=== PATIENT | male | born 1945 | race Caucasian/White ===

== ENCOUNTER 2017-09-29 11:53 | Inpatient (IN) ==
[2017-09-22 13:13] LABS: Appearance,Urine CLEAR; Bilirubin,Urine NEG (NEG); Color,Urine YELLOW; Glucose,Urine (UA) 50 mg/dL (NEG); Leukocyte Esterase,Urine NEG /uL (NEG); Nitrate,Urine NEG (NEG); Protein,Urine NEG (NEG); Specific Gravity,Urine 1.021 (1.000-1.035); Urine Blood NEG mg/dL (<0.03); Urobilinogen,Urine NEG (NEG)
[2017-09-22 14:03] LABS: Basophils # (Auto) 0 K/mcL (0.0-0.3); Basophils % (Auto) 0.3 % (0.0-2.0); Eosinophils # (Auto) 0.4 K/mcL (0.0-0.7); Eosinophils % (Auto) 3.7 % (0.0-7.0); Granulocytes % (Auto) 55.9 % (38.0-78.0); Lymphocytes # (Auto) 3.3 K/mcL (1.5-4.8); Lymphocytes % (Auto) 32.5 % (15.5-49.0); Mean Cell Volume 88.4 fL (80.0-100.0); Mean Corpuscular HGB Conc 33.9 g/dL (31.0-36.0); Monocytes # (Auto) 0.8 K/mcL (0.1-0.9); Monocytes % (Auto) 7.6 % (1.0-12.0); Platelet Count 192 K/mcL (140-440); RBC 4.92 M/mcL (4.50-5.90); Red Cell Distribution Width 14.4 % (11.5-14.5)
[2017-09-22 14:12] LABS: Blood Urea Nitrogen 25 mg/dl (8-23)
[~2017-09-29 11:53] MED LIST: CELECOXIB 200 MG CAPSULE PO SCH; KETOROLAC 30 MG, ROPIVACAINE HCL/PF 49.5 ML, EPINEPHrine 0.5 MG, 0.9 % SODIUM CHLORIDE ... IJ ONE; PREGABALIN 75 MG CAPSULE PO SCH; ceFAZolin 1 GM VIAL IV SCH
[2017-09-29] MEDS ORDERED: IPRATROPIUM/ALBUTEROL 3 ML AMPUL.NEB NEB ONE (19:21)
[2017-09-29] MEDS ORDERED: DEXAMETHASONE 10 MG/ML VIAL IV ONE (21:35)
[2017-09-29] MEDS ORDERED: ROPIVACAINE HCL/PF 20 ML VIAL IJ ONE (21:35)
[2017-09-29] MEDS ORDERED: PROPOFOL 200 MG/20 ML VIAL IV ONE (21:35)
[2017-09-29] MEDS ORDERED: ONDANSETRON 4 MG/2 ML VIAL IV ONE (21:35)
[2017-09-29] MEDS ORDERED: TRANEXAMIC ACID 1,000 MG/10 ML VIAL IV ONE ×3 (21:35→23:45)
[2017-09-29] MEDS ORDERED: MIDAZOLAM 5 MG/5 ML VIAL IV ONE (21:35)
[2017-09-29] MEDS ORDERED: LIDOCAINE HCL/PF 100 MG/5 ML SYRINGE IV ONE (21:35)
[2017-09-29] MEDS ORDERED: KETAMINE 100 MG/ML ML IV ONE (21:35)
[2017-09-29] MEDS ORDERED: GENTAMICIN SULFATE 800 MG/20 ML VIAL IR ONE (21:58)
[2017-09-29] MEDS ORDERED: IPRATROPIUM/ALBUTEROL 3 ML AMPUL.NEB NEB PRN (22:44)
[2017-09-29] MEDS ORDERED: FLUMAZENIL 0.1 MG/ML ML IV PRN (22:44)
[2017-09-29] MEDS ORDERED: NALOXONE HCL 0.4 MG/ML VIAL IV PRN (22:44)
[2017-09-29] MEDS ORDERED: ACETAMINOPHEN 1,000 MG/100 ML BOTTLE IV ONE (22:44)
[2017-09-29] MEDS ORDERED: OPIUM/BELLADONNA ALKALOIDS 60 MG SUPP.RECT PR PRN (22:44)
[2017-09-29] MEDS ORDERED: ATROPINE SULFATE 0.4 MG/ML VIAL IV PRN (22:44)
[2017-09-29] MEDS ORDERED: BENZOCAINE/MENTHOL 1 LOZENGE PO PRN ×2 (22:44→23:14)
[2017-09-29] MEDS ORDERED: ONDANSETRON 4 MG/2 ML VIAL IV PRN ×2 (22:44→23:14)
[2017-09-29] MEDS ORDERED: ePHEDrine 50 MG/ML AMPUL IV PRN (22:44)
[2017-09-29] MEDS ORDERED: METOPROLOL TARTRATE 5 MG/5 ML VIAL IV PRN (22:44)
[2017-09-29] MEDS ORDERED: PROMETHAZINE 25 MG/ML VIAL IV PRN (22:44)
[2017-09-29] MEDS ORDERED: LACTATED RINGERS 1,000 ML IV SCH (22:45)
--- NOTE | 2017-09-29 23:13 | Brief Operative Note ---
Date of procedure: 09/29/17 Pre-op diagnosis: left knee oa Post-op diagnosis: same Procedure: left total knee arthroplasty Grafts/Implants: Yes Anesthesia: spinal Complications: none Surgeon: Kodak Russo Integrity Consultant: Jennifer Garcia Estimated blood loss (cc): 150 Tourniquet Time (Minutes): 62 Specimens Removed/Pathology: none sent Condition: stable Disposition: PACU
[2017-09-29] MEDS ORDERED: BISACODYL 10 MG SUPP.RECT PR PRN (23:14)
[2017-09-29] MEDS ORDERED: ACETAMINOPHEN 325 MG TABLET PO PRN (23:14)
[2017-09-29] MEDS ORDERED: METHOCARBAMOL 750 MG TABLET PO PRN (23:14)
[2017-09-29] MEDS ORDERED: ONDANSETRON ODT 4 MG TABLET SL PRN (23:14)
[2017-09-29] MEDS ORDERED: FLEETS ADULT ENEMA PR PRN (23:14)
[2017-09-29] MEDS ORDERED: MAGNESIUM HYDROXIDE 30 ML ORAL.SUSP PO PRN (23:14)
[2017-09-29] MEDS ORDERED: POLYETHYLENE GLYCOL 3350 17 GM PACKET PO PRN (23:14)
[2017-09-29] MEDS ORDERED: ACETAMINOPHEN W/CODEINE #3 1 TABLET PO PRN (23:14)
[2017-09-30] MEDS: 0.9 % SODIUM CHLORIDE 1,000 ML IV SCH ×2 (00:20→08:24)
[2017-09-30] MEDS: KETOROLAC 30 MG/ML VIAL IV SCH ×3 (00:37→12:24)
[2017-09-30] MEDS ORDERED: KETOROLAC 15 MG/ML VIAL ONE (00:39)
[2017-09-30] MEDS: ceFAZolin 1 GM VIAL IV SCH ×2 (01:15→06:12)
[2017-09-30] MEDS ORDERED: ACETAMINOPHEN 325 MG TABLET PO ONE (02:44)
[2017-09-30] MEDS ORDERED: METHOCARBAMOL 750 MG TABLET PO ONE (02:45)
[2017-09-30] MEDS ORDERED: 0.9 % SODIUM CHLORIDE 10 ML SYRINGE IV SCH (06:00)
[2017-09-30] MEDS ORDERED: KETOROLAC 30 MG/ML VIAL ONE (06:08)
[2017-09-30] MEDS ORDERED: ceFAZolin 1 GM VIAL ONE (06:08)
--- NOTE | 2017-09-30 06:32 | XRay Report ---
CLINICAL INFORMATION: Post-Op Total Knee COMPARISON: None. FINDINGS: Total knee prostheses is anatomically aligned. Soft tissue swelling noted. No osseous abnormality. IMPRESSION: Negative Interpreted and Authenticated by: Kodak Renee 09/30/17
--- NOTE | 2017-09-30 07:27 | Discharge Summary ---
Providers - Providers Patient information: Note initiated : 09/30/17 at 7:25 am Service Date, if different from initiated Date: [] Patient: Dominic Joseph 72 y/o M admitted on 09/29/17 for Left Total Knee Arthroplasty. Chief Complaint: [POD #1 s/p left TKA Patient is doing well. Denies numbness, tingling, calf pain, CP or SOB. Ambulating okay. No questions or concerns] Discharge date: 09/30/17 Hospitalization Hospital course: Patient was brought into the OR on 09/29/17 for left TKA. Procedure went well without event. Patient tolerated well. Admitted overnight for pain control and observation. Will be discharged to home today and follow up in office in 2 weeks. Discharge diagnosis: knee osteoarthritis Exam - Exam Incision healing: Yes Incision draining: No Incision red: No Incision swollen: No Incision inflamed: No Clean and dry: Yes Weight bearing status: as tolerated Range of motion: full AROM b/l ankles/feet. left knee 0/90 deg Ortho Discharge - TKA - Patient Instructions Diet: Regular Diet Activity: activity as tolerated, ambulate with assistive device Total Knee Protocol: For Total Knee: Start ROM RENA with stationary bike or rocking chair. Work on gaining full extension of knee. Posterior dislocation precautions provided. Hip abductor strengthening and gait training instructions provided. Apply Cryocuff as instructed. Dressing Care: May shower in 2 days, Aquacel Ag - leave on for 5 days - Follow Up Plan Follow Up Appointments: Kodak Russo MD [Physician] - Disposition: Home, Self-Care Prognosis: Fair Rehab Potential: Fair Overall status at discharge: patient is progressing back to baseline - Orders For Discharge Prescriptions: Acetaminophen [Tylenol] 650 mg PO Q6HP PRN #60 tab PRN Reason: Pain/Fever > 101 Aspirin [Ecotrin] 325 mg PO BID #60 tab.ec Additional Discharge Orders: Physical Therapy at Discharge - TKA Location: Determined By Patient Walker Location: Determined By Patient Pending Studies Resuscitation Status Full Code Diet Regular Diet Start ThuSep 29 Breakfast Acetaminophen (Tylenol) 650 mg PO Q6HP PRN PRN Reason: PAIN/FEVER > 101 Last Admin: 09/30/17 02:39 Dose: 650 mg Sodium Chloride (Sodium Chloride 0.9%) 1,000 mls @ 125 mls/hr IV .Q8H [facility] Last Admin: 09/30/17 00:20 Dose: 125 mls/hr Ketorolac Tromethamine (Toradol) 30 mg IV Q6 [facility] Stop: 10/01/17 18:01 Last Admin: 09/30/17 06:11 Dose: 30 mg Admin: 09/30/17 00:37 Dose: 30 mg Methocarbamol (Robaxin) 750 mg PO Q6HP PRN PRN Reason: Muscle Spasm Last Admin: 09/30/17 02:39 Dose: 750 mg Sodium Chloride (Saline Flush) 10 ml IV Q8 [facility] Last Admin: 09/30/17 06:11 Dose: 10 ml Shift Summary 09/30/17 03:47 Shift Summary by Augustina Barragan Addendum entered by Augustina Barragan R.N. 09/30/17 04:09: VSS on 2L via NC. Original Note: A&O. Hx of HTN, SOB, asthma, arthritis, frequent urination. Returned to floor at about 0010. EBL 150ml. Had femoral and spinal block. Dressing to L knee CDI. 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 Gave 650mg tylenol and 1 tab robaxin for 7/10 pain. Up w/ 1 assist & FWW. Ambulated to BR to void. Voided 50ml w/ PVR 643ml. Straight cath' ed @ 0330 for 600ml. NS infusing @ 125. Venous foot pumps on. Still c/o some numbness to both feet. Pleasant and cooperative with all cares. Initialized on 09/30/17 03:47 - END OF NOTE Exam Vital signs: Temp Pulse Resp BP Pulse Ox 96.9 F L 91 H 16 159/77 97 09/30/17 03:01 09/30/17 07:16 09/30/17 03:01 09/30/17 03:01 09/30/17 07:16 Constitutional: well developed, well nourished, no acute distress Respiratory: no intercostal retractions or use of accessory muscles Cardiovascular: other (DP/PT pulses 2+. Cap refill < 3 secs) Neurologic: sensation intact to touch, other (b/l LE NVI. Motor and sensory grossly intact) Psychiatric: oriented to person, place and time
[2017-09-30] MEDS ORDERED: METHOCARBAMOL 750 MG TABLET PO PRN (07:34)
--- NOTE | 2017-09-30 07:36 | Operative Note ---
DATE OF OPERATION: 09/29/2017 PREOPERATIVE DIAGNOSIS: Degenerative joint disease, left knee. POSTOPERATIVE DIAGNOSIS: Degenerative joint disease, left knee. PROCEDURE: Left total knee arthroplasty. SURGEON: Emiliano Russo M.D. [employer] P[employer]TER SURGEON: Jennifer Garcia PA-C ANESTHESIA: Spinal with LMA assist. ESTIMATED BLOOD LOSS: 150 mL COMPLICATIONS: None noted. SPECIMENS REMOVED: None. DRAINS: None. TOURNIQUET TIME: 62 minutes at 300 mmHg. IMPLANTS: DePuy Attune tibial insert fixed bearing posterior stabilized size 6, 5 mm AOX, DePuy Attune patella medialized dome 38 mm cemented AOX, DePuy Attune femoral posterior stabilized size 6 left cemented, DePuy Attune tibial based fixed bearing size 6 cemented, DePuy CMW2 bone cement 20 grams x4. INDICATIONS: The patient has had a long-standing history of worsening pain in the knee that has failed conservative treatment. Radiographs have confirmed advanced degenerative joint disease. After a long discussion about treatment options, the patient elected to proceed with a knee arthroplasty. The risks and benefits were discussed with the patient in detail including, but not limited to, the risks of anesthesia, problems with the heart or lungs related to anesthesia, infection, compromise or injury to the nerves and blood vessels, deep venous thrombosis, pulmonary embolism, pneumonia, continued pain after surgery, worsening pain or symptoms after surgery, swelling, loss of motion, instability, leg length discrepancy, and need for repeat surgery. DESCRIPTION OF PROCEDURE: The patient was seen in the pre-anesthesia waiting room where all questions were answered and the correct side and site were identified and marked. The patient was transferred to the operating room and administered the anesthetic and given pre-operative antibiotics. A time-out was then called. The extremity was prepped and draped, exsanguinated, and the tourniquet was inflated to 300 mmHg. A midline skin incision was then made with a standard medial parapatellar arthrotomy. Debridement of the menisci, ACL, and PCL was performed followed by balancing releases in the medial lateral plane. We then established intramedullary access to both the femur and tibia in a standard fashion. The femoral guide bartolo was initially placed with the distal femoral guide, pinned into place, and the distal femoral cut was performed and checked with a flat plate. We then turned our attention to the tibia. The intramedullary guide was placed with the proximal tibial cutting block. The block was appropriately positioned off the affected side, varus and valgus was checked with the extra-medullary guide, and the block was pinned into place. The proximal tibial cut was performed and the tibia was prepared for the tibial implant with appropriate rotation. The tibia, femur, and posterior compartment were debrided of osteophytes, loose bodies, and meniscal fragments We then used the gap balancing technique to balance extension with the first two cuts and good balancing was obtained with a 10 millimeter gap block. We turned our attention back to the femur and used the referencing block and implant to size appropriately. Using the gap balancing technique for the flexion space we set our rotation of the femur off the tibial cut. Anesthesia gave the patient 1 gram of Tranexamic Acid via an intravenous route. We placed the 4 in 1 cutting block and made anterior, posterior, and chamfer cuts. Box plasty cuts were then made in a standard fashion for the posterior stabilized prosthesis. We then completed osteophyte release and posterior capsule release from the posterior compartment. Trials were placed and we chose the polyethylene insert thickness that provided the best stability in all planes. With the trials in place, we did a measured resection for a resurfacing patella. We sized the patella and placed the patella trial and performed a lateral facetectomy with the saw and rongeur. Good tracking was obtained. We removed all trials, irrigated and dried all cut surfaces. We cemented the components into place including tibia, femur and patella. We placed a trial liner and held the knee in full extension with the patella compressed while the cement cured. We then removed all excess cement and placed the final polyethylene tibiofemoral component. Irrigation with 3 liters of antibiotic saline was then performed using jet-lavage. We let the tourniquet down and coagulated bleeding vessels. We injected a 100 cubic centimeter volume including Ropivacaine 49.25 cubic centimeters at 5 milligrams per cubic centimeter, Ketorolac 30 milligrams, and Epinephrine 0.5 milligrams into 100 cubic centimeters volume of normal saline. We closed the retinaculum with #2 Stratafix. We closed the subcutaneous tissue and skin in layers out to patric in the skin. A sterile pressure dressing was applied. All needle and sponge counts were correct. The patient was transferred to the recovery room in stable condition. SEGUN:capri Job ID: [id number] Doc ID: [id number] Emiliano Russo MD
[2017-09-30] MEDS ORDERED: ALBUTEROL SULFATE 1 PUFF INHALER IH PRN (09:00)
[2017-09-30] MEDS ORDERED: ALBUTEROL SULFATE 1 PUFF INHALER IH SCH (09:00)
[2017-09-30] MEDS ORDERED: FUROSEMIDE 40 MG TABLET PO SCH (09:00)
[2017-09-30] MEDS ORDERED: DOCUSATE SODIUM 100 MG CAPSULE PO SCH (09:00)
[2017-09-30] MEDS ORDERED: LOSARTAN 50 MG TABLET PO SCH (09:00)
[2017-09-30] MEDS ORDERED: Budesonide/Formoterol Fumarate [Symbicort] 160-4.5 mcg Inhaler INH SCH (09:00)
[2017-09-30] MEDS ORDERED: MONTELUKAST 10 MG TABLET PO SCH (09:00)
[2017-09-30] MEDS ORDERED: ASPIRIN 325 MG ENTERIC COATED TABLET PO SCH (09:00)
[2017-09-30] MEDS ORDERED: ceFAZolin 1 GM VIAL IV SCH (14:00)
[2017-09-30] MEDS ORDERED: SENNOSIDES 1 TABLET PO SCH (21:00)
== END 2017-09-30 14:15 | disposition home or self-care (01) | DRG 470 ==
LOC: MEDSUR 11:53
PROVIDERS: ADMIT Orthopaedic Surgery Sports Medicine; ATTEND Orthopaedic Surgery Sports Medicine

== ENCOUNTER 2018-02-19 10:00 | Inpatient (IN) ==
[2018-02-19 14:40] LABS: Appearance,Urine CLEAR; Bilirubin,Urine NEG (NEG); Color,Urine COLORLESS; Glucose,Urine (UA) NEGATIVE (NEG); Leukocyte Esterase,Urine NEG /uL (NEG); Protein,Urine NEG (NEG); Specific Gravity,Urine 1.006 (1.000-1.035); Urine Blood NEG mg/dL (<0.03); Urobilinogen,Urine NEG (NEG)
[2018-02-19 15:06] LABS: Basophils # (Auto) 0 K/mcL (0.0-0.3); Basophils % (Auto) 0.2 % (0.0-2.0); Eosinophils # (Auto) 0.3 K/mcL (0.0-0.7); Eosinophils % (Auto) 2.4 % (0.0-7.0); Granulocytes % (Auto) 55.3 % (38.0-78.0); Lymphocytes # (Auto) 3.9 K/mcL (1.5-4.8); Lymphocytes % (Auto) 34.6 % (15.5-49.0); Mean Cell Volume 86.9 fL (80.0-100.0); Mean Corpuscular HGB Conc 33.3 g/dL (31.0-36.0); Mean Corpuscular Hemoglobin 28.9 pg (26.0-34.0); Monocytes # (Auto) 0.8 K/mcL (0.1-0.9); Monocytes % (Auto) 7.5 % (1.0-12.0); Platelet Count 219 K/mcL (140-440); RBC 5.31 M/mcL (4.50-5.90); Red Cell Distribution Width 14.4 % (11.5-14.5)
[2018-02-19 15:13] LABS: Blood Urea Nitrogen 16 mg/dl (8-23)
[2018-02-23] MEDS ORDERED: IPRATROPIUM/ALBUTEROL 3 ML AMPUL.NEB NEB PRN ×2 (00:01→13:10)
[2018-02-23] MEDS ORDERED: SCOPOLAMINE 1 PATCH PATCH TOPICAL PRN (00:01)
[2018-02-23] MEDS ORDERED: oxyCODONE 10 MG TAB.ER.12H PO SCH (07:00)
[2018-02-23] MEDS ORDERED: PREGABALIN 75 MG CAPSULE PO SCH (07:00)
[2018-02-23] MEDS ORDERED: CELECOXIB 200 MG CAPSULE PO SCH (07:00)
[2018-02-23] MEDS ORDERED: ceFAZolin 1 GM VIAL IV SCH (07:00)
[2018-02-23] MEDS ORDERED: KETOROLAC 30 MG, ROPIVACAINE HCL/PF 49.5 ML, EPINEPHrine 0.5 MG, 0.9 % SODIUM CHLORIDE ... IV SCH (07:00)
[2018-02-23] MEDS ORDERED: TRANEXAMIC ACID 1,000 MG/10 ML VIAL IV ONE ×2 (11:55→13:34)
[2018-02-23] MEDS ORDERED: LIDOCAINE HCL/PF 100 MG/5 ML SYRINGE IV ONE (11:55)
[2018-02-23] MEDS ORDERED: PROPOFOL 200 MG/20 ML VIAL IV ONE (11:55)
[2018-02-23] MEDS ORDERED: ONDANSETRON 4 MG/2 ML VIAL IV ONE (11:55)
[2018-02-23] MEDS ORDERED: MIDAZOLAM 5 MG/5 ML VIAL IV ONE (11:55)
[2018-02-23] MEDS ORDERED: ePHEDrine 50 MG/ML AMPUL IV ONE (11:55)
[2018-02-23] MEDS ORDERED: DEXAMETHASONE 10 MG/ML VIAL IV ONE (11:55)
[2018-02-23] MEDS ORDERED: ROPIVACAINE HCL/PF 20 ML VIAL IJ ONE (12:00)
[2018-02-23] MEDS ORDERED: GENTAMICIN SULFATE 800 MG/20 ML VIAL IR ONE (13:09)
[2018-02-23] MEDS ORDERED: ONDANSETRON 4 MG/2 ML VIAL IV PRN ×2 (13:10→13:34)
[2018-02-23] MEDS ORDERED: BENZOCAINE/MENTHOL 1 LOZENGE PO PRN ×2 (13:10→13:34)
[2018-02-23] MEDS ORDERED: PROMETHAZINE 25 MG/ML VIAL IV PRN (13:10)
[2018-02-23] MEDS ORDERED: MEPERIDINE 25 MG/ML SYRINGE IV PRN (13:10)
[2018-02-23] MEDS ORDERED: FLUMAZENIL 0.1 MG/ML ML IV PRN (13:10)
[2018-02-23] MEDS ORDERED: ACETAMINOPHEN 1,000 MG/100 ML BOTTLE IV ONE (13:10)
[2018-02-23] MEDS ORDERED: LACTATED RINGERS 250 ML IV PRN (13:10)
[2018-02-23] MEDS ORDERED: NALOXONE HCL 0.4 MG/ML VIAL IV PRN (13:10)
[2018-02-23] MEDS ORDERED: diphenhydrAMINE 50 MG/ML VIAL IV PRN (13:10)
[2018-02-23] MEDS ORDERED: fentaNYL 100 MCG/2 ML VIAL IV PRN (13:10)
[2018-02-23] MEDS ORDERED: LACTATED RINGERS 1,000 ML IV SCH (13:15)
[2018-02-23] MEDS ORDERED: ALBUTEROL SULFATE 1 PUFF INHALER IH PRN (13:33)
[2018-02-23] MEDS ORDERED: FLEETS ADULT ENEMA PR PRN (13:34)
[2018-02-23] MEDS ORDERED: MAGNESIUM HYDROXIDE 30 ML ORAL.SUSP PO PRN (13:34)
[2018-02-23] MEDS ORDERED: POLYETHYLENE GLYCOL 3350 17 GM PACKET PO PRN (13:34)
[2018-02-23] MEDS ORDERED: BISACODYL 10 MG SUPP.RECT PR PRN (13:34)
[2018-02-23] MEDS ORDERED: METHOCARBAMOL 750 MG TABLET PO PRN (13:34)
[2018-02-23] MEDS ORDERED: ACETAMINOPHEN 325 MG TABLET PO PRN (13:34)
[2018-02-23] MEDS ORDERED: ONDANSETRON ODT 4 MG TABLET SL PRN (13:34)
--- NOTE | 2018-02-23 13:34 | Brief Operative Note ---
Date of procedure: 02/23/18 Pre-op diagnosis: right knee oa Post-op diagnosis: same Procedure: right total knee arthroplasty Grafts/Implants: Yes Anesthesia: spinal Complications: none Surgeon: Kodak Russo Dope Edger: Jennifer Garcia Estimated blood loss (cc): 100 Tourniquet Time (Minutes): 62 Specimens Removed/Pathology: none sent Condition: stable Disposition: PACU
--- NOTE | 2018-02-23 14:01 | Operative Note ---
DATE OF OPERATION: 02/23/2018 PREOPERATIVE DIAGNOSIS: Degenerative joint disease, right knee. POSTOPERATIVE DIAGNOSIS: Degenerative joint disease, right knee. PROCEDURE: Right total knee arthroplasty. SURGEON: Emiliano Russo M.D. SKIN CARVER SURGEON: Jennifer Garcia PA-C ANESTHESIA: Spinal with LMA assist. ESTIMATED BLOOD LOSS: 100 mL COMPLICATIONS: None noted. SPECIMENS REMOVED: None. DRAINS: None. TOURNIQUET TIME: 62 minutes at 300 mmHg. IMPLANTS: DePuy CMW2 bone cement 20 grams x4, DePuy Attune femoral posterior stabilized size 7 right cemented, DePuy Attune tibial insert fixed bearing posterior stabilized size 7, 8 mm AOX, DePuy Attune tibial based fixed bearing size 6 cemented, DePuy Attune patella medialized dome 38 mm cemented AOX. INDICATIONS: The patient has had a long-standing history of worsening pain in the knee that has failed conservative treatment. Radiographs have confirmed advanced degenerative joint disease. After a long discussion about treatment options, the patient elected to proceed with a knee arthroplasty. The risks and benefits were discussed with the patient in detail including, but not limited to, the risks of anesthesia, problems with the heart or lungs related to anesthesia, infection, compromise or injury to the nerves and blood vessels, deep venous thrombosis, pulmonary embolism, pneumonia, continued pain after surgery, worsening pain or symptoms after surgery, swelling, loss of motion, instability, leg length discrepancy, and need for repeat surgery. DESCRIPTION OF PROCEDURE: The patient was seen in the pre-anesthesia waiting room where all questions were answered and the correct side and site were identified and marked. The patient was transferred to the operating room and administered the anesthetic and given pre-operative antibiotics. A time-out was then called. The extremity was prepped and draped, exsanguinated, and the tourniquet was inflated to 300 mmHg. A midline skin incision was then made with a standard medial parapatellar arthrotomy. Debridement of the menisci, ACL, and PCL was performed followed by balancing releases in the medial lateral plane. We then established intramedullary access to both the femur and tibia in a standard fashion. The femoral guide bartolo was initially placed with the distal femoral guide, pinned into place, and the distal femoral cut was performed and checked with a flat plate. We then turned our attention to the tibia. The intramedullary guide was placed with the proximal tibial cutting block. The block was appropriately positioned off the affected side, varus and valgus was checked with the extra-medullary guide, and the block was pinned into place. The proximal tibial cut was performed and the tibia was prepared for the tibial implant with appropriate rotation. The tibia, femur, and posterior compartment were debrided of osteophytes, loose bodies, and meniscal fragments We then used the gap balancing technique to balance extension with the first two cuts and good balancing was obtained with a 10 millimeter gap block. We turned our attention back to the femur and used the referencing block and implant to size appropriately. Using the gap balancing technique for the flexion space we set our rotation of the femur off the tibial cut. Anesthesia gave the patient 1 gram of Tranexamic Acid via an intravenous route. We placed the 4 in 1 cutting block and made anterior, posterior, and chamfer cuts. Box plasty cuts were then made in a standard fashion for the posterior stabilized prosthesis. We then completed osteophyte release and posterior capsule release from the posterior compartment. Trials were placed and we chose the polyethylene insert thickness that provided the best stability in all planes. With the trials in place, we did a measured resection for a resurfacing patella. We sized the patella and placed the patella trial and performed a lateral facetectomy with the saw and rongeur. Good tracking was obtained. We removed all trials, irrigated and dried all cut surfaces. We cemented the components into place including tibia, femur and patella. We placed a trial liner and held the knee in full extension with the patella compressed while the cement cured. We then removed all excess cement and placed the final polyethylene tibiofemoral component. Irrigation with 3 liters of antibiotic saline was then performed using jet-lavage. We let the tourniquet down and coagulated bleeding vessels. We injected a 100 cubic centimeter volume including Ropivacaine 49.25 cubic centimeters at 5 milligrams per cubic centimeter, Ketorolac 30 milligrams, and Epinephrine 0.5 milligrams into 100 cubic centimeters volume of normal saline. We closed the retinaculum with #2 Stratafix and 0 Vicryl. We closed the subcutaneous tissue and skin in layers out to Dermabond on the skin. A sterile pressure dressing was applied. All needle and sponge counts were correct. The patient was transferred to the recovery room in stable condition. SEGUN:capri Job ID: [id number] Doc ID: [id number] Emiliano Russo MD
--- NOTE | 2018-02-23 14:31 | XRay Report ---
CLINICAL INFORMATION: Right knee surgery TECHNIQUE: AP and lateral right knee COMPARISON: None. FINDINGS: Status post right total knee arthroplasty. Femoral and tibial components are in anatomic positions. There is postsurgical soft tissue and intra-articular gas IMPRESSION: Status post right total knee arthroplasty. Interpreted and Authenticated by: Kodak Loyola 02/23/18
[2018-02-23] MEDS: 0.9 % SODIUM CHLORIDE 1,000 ML IV SCH ×2 (14:35→22:38)
[2018-02-23] MEDS: 0.9 % SODIUM CHLORIDE 10 ML SYRINGE IV SCH ×2 (14:37→20:29)
[2018-02-23] MEDS: HYDROcodone/APAP 10/325MG TABLET PO PRN (17:35)
[2018-02-23] MEDS: KETOROLAC 15 MG/ML VIAL IV SCH ×2 (17:35→23:30)
[2018-02-23] MEDS: ceFAZolin 1 GM VIAL IV SCH (19:45)
[2018-02-23] MEDS: ASPIRIN 325 MG ENTERIC COATED TABLET PO SCH (20:28)
[2018-02-23] MEDS: DOCUSATE SODIUM 100 MG CAPSULE PO SCH (20:28)
[2018-02-23] MEDS: LOSARTAN 50 MG TABLET PO SCH (20:28)
[2018-02-23] MEDS ORDERED: SENNOSIDES 1 TABLET PO SCH (21:00)
[2018-02-23] MEDS ORDERED: MONTELUKAST 10 MG TABLET PO SCH (21:00)
[2018-02-24] MEDS: HYDROcodone/APAP 10/325MG TABLET PO PRN ×3 (03:13→11:28)
[2018-02-24] MEDS: ceFAZolin 1 GM VIAL IV SCH (03:13)
[2018-02-24] MEDS: 0.9 % SODIUM CHLORIDE 1,000 ML IV SCH (04:58)
[2018-02-24] MEDS: KETOROLAC 15 MG/ML VIAL IV SCH ×2 (05:20→11:50)
[2018-02-24] MEDS: 0.9 % SODIUM CHLORIDE 10 ML SYRINGE IV SCH (05:20)
[2018-02-24] MEDS: ASPIRIN 325 MG ENTERIC COATED TABLET PO SCH (07:30)
[2018-02-24] MEDS: LOSARTAN 50 MG TABLET PO SCH (07:30)
[2018-02-24] MEDS: DOCUSATE SODIUM 100 MG CAPSULE PO SCH (07:30)
--- NOTE | 2018-02-24 07:41 | Orthopedic Progress Note ---
Subjective Patient information: Note initiated : 02/24/18 at 7:40 am Service Date, if different from initiated Date: [] Patient: Dominic Joseph 72 y/o M admitted on 02/23/18 for Right Total Knee Arthroplasty. Chief Complaint: [] Interval history: doing well. pain under control this am Objective Vital signs: Vital Signs Temp Pulse Pulse Resp BP BP Pulse Ox 02/24/18 07:29 132/64 02/24/18 03:22 97.7 F 77 16 131/67 93 02/23/18 23:36 97.3 F 85 16 134/69 94 02/23/18 21:33 94 02/23/18 21:32 94 02/23/18 20:00 97.8 F 81 16 135/86 92 02/23/18 15:35 70 155/69 93 02/23/18 15:19 66 147/69 94 02/23/18 15:03 67 147/81 95 02/23/18 14:48 66 163/81 97 02/23/18 14:34 70 152/71 94 02/23/18 14:26 98.1 F 65 14 146/62 96 02/23/18 14:21 67 13 150/76 95 02/23/18 14:16 72 16 153/73 93 02/23/18 14:11 77 14 157/62 93 02/23/18 14:06 79 17 149/61 94 02/23/18 14:01 78 20 150/69 94 02/23/18 13:56 97.4 F 76 18 141/65 96 02/23/18 10:04 97.6 F 69 20 156/63 93 02/23/18 08:13 20 Intake and Output 02/23/18 02/24/18 02/24/18 21:59 05:59 13:59 Intake Total 1040 / 1040 1300 / 1300 Output Total 525 / 525 400 / 400 Balance 515 / 515 900 / 900 Intake: IV 1000 / 1000 Sodium Chloride 0.9% 1,000 ml @ 1000 / 1000 125 mls/hr IV .Q8H [facility] Rx#: [id number] Oral 1040 / 1040 300 / 300 Output: Void Amount 525 / 525 400 / 400 Other: Meal Dinner Percent of Meal Consumed 100% Weight 265 lb 8 oz Intake & Output: Intake & Output 02/23/18 02/24/1818 21:59 05:59 13:59 Intake Total 1040 / 1040 1300 / 1300 Output Total 525 / 525 400 / 400 Balance 515 / 515 900 / 900 Weight 265 lb 8 oz Intake: IV 1000 / 1000 Sodium Chloride 0.9% 1,000 ml @ 1000 / 1000 125 mls/hr IV .Q8H [facility] Rx#: [id number] Oral 1040 / 1040 300 / 300 Output: Void Amount 525 / 525 400 / 400 Other: Meal Dinner Percent of Meal Consumed 100% Incision: Yes healing Incision clean and dry: Yes Dressing: Yes clean, Yes dry, Yes intact Weight bearing status: full Neurological exam IM: Yes alert, Yes oriented X3, Yes motor sensory intact, Yes neurovascular intact Extremities exam IM: No calf tenderness, Yes normal inspection, Yes Foot pink and warm, Yes neurovascular intact - Labs CBC & BMP: 02/24/18 04:15 02/19/18 12:15 Labs: Orthopedic Labs 02/19/18 12:15 PT 12.5 INR 0.9 02/24/18 02/19/18 04:15 12:15 Hgb 12.6 L 15.3 Hct 37.9 L 46.1 Assessment and Plan (1) Knee osteoarthritis pod 1 s/p tka pain control dvt prophylaxis wbat pt dc planning Status: Acute
--- NOTE | 2018-02-24 07:43 | Discharge Summary ---
Ortho Discharge - TKA - Patient Instructions Diet: Regular Diet Activity: activity as tolerated, ambulate with assistive device, weight bearing as tolerated Total Knee Protocol: For Total Knee: Start ROM RENA with stationary bike or rocking chair. Work on gaining full extension of knee. Posterior dislocation precautions provided. Hip abductor strengthening and gait training instructions provided. Apply Cryocuff as instructed. Dressing Care: May shower in 2 days - Problem Maintenance (1) Knee osteoarthritis Status: Acute - Follow Up Plan Follow Up Appointments: Kdoak Russo MD [Physician] - 03/10/18 9:00 am Disposition: Home, Self-Care Prognosis: Good Rehab Potential: Good I certify that the patient requires SNF services: No Overall status at discharge: patient is progressing back to baseline
[2018-02-24] MEDS ORDERED: FERROUS SULFATE 325 MG TABLET PO SCH (08:00)
[2018-02-24] MEDS ORDERED: FUROSEMIDE 40 MG TABLET PO SCH (09:00)
[2018-02-24] MEDS ORDERED: Fluticasone Furoate [Arnuity Ellipta] Inhaler INH SCH (09:00)
[2018-02-24] MEDS ORDERED: TRELEGY INH SCH (09:00)
== END 2018-02-24 12:00 | disposition home or self-care (01) | DRG 470 ==
LOC: MEDSUR 02-23 08:13
PROVIDERS: ADMIT Orthopaedic Surgery Sports Medicine; ATTEND Orthopaedic Surgery Sports Medicine

== ENCOUNTER 2020-05-21 05:12 | Observation (INO) ==
[2020-05-21] MEDS ORDERED: IOPAMIDOL 100 ML BOTTLE IV ONE (05:13)
--- NOTE | 2020-05-21 05:29 | Emergency Department Note ---
HPI General Chief complaint: Weakness Stated complaint: weakness resolved Time Seen by Provider: 05/21/20 05:16 Source: patient Mode of arrival: EMS Limitations: no limitations History of Present Illness HPI Narrative: Narrative: 74-year-old patient presenting to the emergency department chief complaint of stroke symptoms. Patient's primary syndrome includes left-sided hemiparesis by history. Patient's primary syndrome does not include expressive aphasia, gait instability/posterior circulation symptoms, visual disturbance. Patient with sudden onset. Patient with past medical history does include diabetes. Patients time course was less than 1 hour prior to arrival. Pt is not currently on blood thinners. Patient with complete resolution of symptoms over a 20- minute period of time. Related Data Home Medications Medication Instructions Recorded Confirmed albuterol sulfate [Proventil HFA] 1 puff IH Q4HP PRN 09/22/17 05/21/20 furosemide 40 mg PO DAILY 09/22/17 05/21/20 losartan [Cozaar] 50 mg PO QDAY 09/22/17 05/21/20 montelukast [Singulair] 10 mg PO HS 09/22/17 05/21/20 cholecalciferol (vitamin D3) 4,000 unit PO DAILY 02/19/18 05/21/20 [Vitamin D3] Trelegy 1 puff INH DAILY 02/23/18 05/21/20 metformin 500 mg PO BID 05/21/20 05/21/20 Previous Rx's Medication Instructions Recorded aspirin [Aspir-81] 81 mg PO QDAY #30 tab 05/22/20 atorvastatin 40 mg PO HS #30 tab 05/22/20 Allergies Allergy/AdvReac Type Severity Reaction Status Date / Time No Known Drug Allergies Allergy Verified 05/21/20 05:19 Review of Systems ROS ROS Narrative: Narrative: All systems ED: reviewed and negative except as stated. PFSH Narrative Patient History Narrative: Knee osteoarthritis (Acute) Brain TIA (Acute Medical/Surgical/Family History All Active Problems (Updated 05/21/20 @ 07:17 by Jayson Davidson MD) Knee osteoarthritis (Acute) Brain TIA (Acute) Social History Smoking Status: Former smoker Exam Narrative Narrative: Narrative: General: Alert, interactive, appropriate Head: Atraumatic, normocephalic Eyes: Extraocular movements intact, sclera anicteric, no conjunctival injection Ears: Pinnae normal, no discharge Mouth: Oral mucosa moist, no acute swelling or evidence of infection Nares: No nasal discharge, patent bilaterally Neck: Trachea midline, full range of motion Chest: Symmetrical chest wall rise, breathing normally; nonlabored respirations Cardiovascular: Patient with excellent perfusion to the extremities; without tachycardia/bradycardia Skin: Patient without area of erythema, patient is without rash, no ascending lymphangitis or lymphadenopathy Extremities: Full range of motion joints, no obvious deformities Neuro: Alert, oriented x3, cranial nerves II through XII grossly intact, patient without lateralizing findings such as weakness, or abnormal reflexes Psychiatric: Normal affect, normal mood General Limitations: no limitations Course Vital Signs Vital signs: Vital Signs Temperature 97.1 F 05/21/20 05:13 Pulse Rate 62 05/21/20 05:13 Respiratory Rate 16 05/21/20 05:13 Blood Pressure 178/76 05/21/20 05:13 Pulse Oximetry (%) 95 05/21/20 05:13 Temperature 97.2 F 05/22/20 12:30 Pulse Rate 78 05/22/20 12:02 Respiratory Rate 18 05/22/20 12:02 Blood Pressure 173/83 05/22/20 12:30 Pulse Oximetry (%) 96 05/22/20 12:30 MDM MDM Narrative Medical decision making narrative: Narrative: Differential diagnosis includes seizure, migraine, metabolic abnormality such as hypoglycemia, multiple sclerosis, brain tumors, ICH, confusion, dementia, CVA, TIA, DKA, UTI, pneumonia, alcohol or drug intoxication, delirium, dehydration, sepsis, psychiatric issues, and syncope. Patient was evaluated in the emergency department with the combination of imaging/laboratory/EKG/physical exam and history. Patient was assessed for the potential need of TPA as well as aggressive stroke management. In this particular case I do not believe this patient has an acute stroke. NIH stroke scale has come to 0. CT head as well as physical exam and history do not suggest acute occlusive stroke. In my medical opinion at this time patient can most reasonably be managed as an outpatient. I am also of the opinion that this patient does not have an acute emergent medical condition that would require admission transfer or additional laboratory/radiologic investigation. I consider the ABCD2 score Age- 6060 years old or older (1 point) Blood pressure- Systolic >140 mmHg and/or diastolic =90 mmHg (1 point) Clinical features- Unilateral weakness (2 points), Speech impairment but no weakness (1 point), None (0 points) Duration- 60 minutes or more (2 points), 10 to 59 minutes (1 point), Less than 10 minutes (0 points) Diabetes present Yes (1 point) Patient with a score of 6 Clinical features specifically assessed for include age greater than 60 years old, history of TIA or stroke within 30 days, history of diabetes, systolic blood pressure greater than 140 or diastolic blood pressure greater than 90, unilateral weakness, isolated speech disturbance, duration of TIA greater than 10 minutes, acute or chronic lesions on CT, large artery atherosclerosis. CT head as well as physical exam and history do not suggest acute occlusive stroke. CTA head and neck are ordered. Discussed case with Dr. Redd and the consensus medical opinion at this time is to admit for TIA patient was significantly elevated ABCD2 score, patient is at risk for stroke as well as needing to complete work-up for TIA/stroke. Patient with NIH stroke scale at time of disposition of 0. Lab Data Result diagrams: 05/22/20 05:05 05/22/20 05:05 Labs: Lab Results 05/21/20 05/21/20 05/21/20 Range/Units 05:16 05:16 05:16 WBC 9.7 (4.50-11.00) K/mcL RBC 4.37 L (4.63-6.08) M/mcL Hgb 13.5 L (13.7-17.5) g/dL Hct 39.6 L (40.1-51.0) % MCV 90.6 (80.0-100.0) fL MCH 30.9 (26.0-34.0) pg MCHC 34.1 (31.0-36.0) g/dL RDW 13.2 (11.5-14.5) % Plt Count 194 (140-440) K/mcL MPV 10.9 H (7.4-10.4) fL Gran % 50.9 (38.0-78.0) % Lymph % (Auto) 37.0 (15.5-49.0) % Cache % (Auto) 9.0 (1.0-12.0) % Eos % (Auto) 2.6 (0.0-7.0) % Baso % (Auto) 0.5 (0.0-2.0) % Gran # 4.92 (1.80-8.00) K/mcL Lymph # (Auto) 3.57 (1.50-4.80) K/mcL [place] # (Auto) 0.87 (0.10-0.90) K/mcL Eos # (Auto) 0.25 (0.00-0.70) K/mcL Baso # (Auto) 0.05 (0.00-0.30) K/mcL PT 12.0 (11.9-14.5) sec INR 0.8 L (0.9-1.1) Sodium 138 (133-145) mmol/L Potassium 3.0 L (3.3-5.1) mmol/L Chloride 97 (96-108) mmol/L Carbon Dioxide 27 (22-30) mmol/L Anion Gap 14.0 (8-16) BUN 27 H (8-23) mg/dl Creatinine 1.3 H (0.7-1.2) mg/dl GFR Calculation 54 Glucose 155 H (70-105) mg/dL Calcium 8.4 L (8.6-10.4) mg/dl Total Bilirubin 0.5 (0.0-1.0) mg/dL AST 18 (0-37) U/l ALT 22 (0-40) U/l Alkaline Phosphatase 87 (39-117) U/L Total Protein 6.4 (5.9-8.4) gm/dL Albumin 3.7 (3.2-5.2) gm/dL Globulin 2.7 (2.2-3.7) gm/dL Albumin/Globulin Ratio 1.4 (1.0-2.3) Discharge Plan Patient/Caregiver Discharge Instructions Pt seen by EDUCATIONAL INSTITUTION PRESIDENT/PA only: No Clinical Impression: Brain TIA Activity: increase activity as tolerated Patient Disposition: Xfer As Outpt/Obs ([facility]) Condition: Fair Discharge Date/Time: 05/21/20 09:33
[2020-05-21 06:06] LABS: Basophils # (Auto) 0.05 K/mcL (0.00-0.30); Basophils % (Auto) 0.5 % (0.0-2.0); Eosinophils # (Auto) 0.25 K/mcL (0.00-0.70); Eosinophils % (Auto) 2.6 % (0.0-7.0); Granulocytes % (Auto) 50.9 % (38.0-78.0); Hematocrit 39.6 % (40.1-51.0); Hemoglobin 13.5 g/dL (13.7-17.5); Lymphocytes # (Auto) 3.57 K/mcL (1.50-4.80); Mean Cell Volume 90.6 fL (80.0-100.0); Mean Corpuscular HGB Conc 34.1 g/dL (31.0-36.0); Mean Platelet Volume 10.9 fL (7.4-10.4); Monocytes # (Auto) 0.87 K/mcL (0.10-0.90); Platelet Count 194 K/mcL (140-440); RBC 4.37 M/mcL (4.63-6.08); Red Cell Distribution Width 13.2 % (11.5-14.5); WBC 9.7 K/mcL (4.50-11.00)
[2020-05-21 06:13] LABS: INR 0.8 (0.9-1.1)
[2020-05-21 06:21] LABS: ALT/SGPT 22 U/l (0-40); AST/SGOT 18 U/l (0-37); Albumin 3.7 gm/dL (3.2-5.2); Albumin/Globulin Ratio 1.4 (1.0-2.3); Alkaline Phosphatase 87 U/L (39-117); Bilirubin,Total 0.5 mg/dL (0.0-1.0); Blood Urea Nitrogen 27 mg/dl (8-23); Calcium 8.4 mg/dl (8.6-10.4); Carbon Dioxide 27 mmol/L (22-30); Chloride 97 mmol/L (96-108); Globulin 2.7 gm/dL (2.2-3.7); Glomerular Filtration Rate 54; Glucose 155 mg/dL (70-105)
--- NOTE | 2020-05-21 08:39 | Cat Scan Report ---
History: New onset transient left-sided weakness TECHNIQUE: The brain was imaged without contrast at 2.5 mm intervals. Sagittal and coronal reformats were created. Radiation exposure was limited using dose reduction technology. FINDINGS: There is no evidence of an infarct, hemorrhage or mass effect. The ventricles and cisterns are normal. There is mild atrophy of the frontal lobes. No abnormal extra-axial fluid collection is present. The ventricles are normal in size. There is moderate mucosal thickening along the renteria of many of the ethmoid air cells. IMPRESSION: Normal brain for patient's age Moderate ethmoid sinusitis Interpreted and Authenticated by: Israel Rock 05/21/20
--- NOTE | 2020-05-21 08:52 | Cat Scan Report ---
History: Transient left side stroke symptoms TECHNIQUE: Following injection of intravenous nonionic contrast, arterial phase images were acquired from the thoracic inlet to the top of the head. Sagittal, coronal and curved linear reformatted images were created of the head and neck. The radiation exposure was limited using dose reduction technology. FINDINGS: The aortic arch is normal in caliber. There is small amount of plaque along the wall. There is intimal thickening at the origin of the left common carotid which is causing approximately 30% narrowing. The innominate artery is normal. There are couple scattered plaques in the right subclavian artery which are not causing stenosis. Left subclavian artery is normal. The vertebral arteries are normal. At the carotid bifurcations there is a small amount of mixed plaque bilaterally. There is mostly soft plaque in the left carotid bifurcation causing close to 50% stenosis. There is less than 20% stenosis at the origin of the right internal carotid. The cervical carotids are otherwise normal bilaterally without evidence of a hemodynamically significant stenosis, thrombosis or ulcerated plaque. External carotids are normal. The intracranial arterial circulation is normal. The internal carotids, anterior and middle cerebral arteries are normal. Vertebral arteries are normal. There are couple small eccentric plaques in both vertebral arteries at foramen magnum. These are not causing stenosis. The basilar artery and posterior fossa circulation are normal. There is no intracranial hemodynamically significant stenosis, thrombosis, aneurysm or vascular anomaly. There is advanced degenerative disc disease and arthritis in the cervical spine from C3-4 through C6-7 IMPRESSION: Mild atherosclerosis and no evidence of hemodynamically significant stenosis or vascular occlusion Dr. Davidson was called with the results Interpreted and Authenticated by: Israel Rock 05/21/20
[2020-05-21] MEDS ORDERED: GADOBENATE DIMEGLUMINE 20 ML/VIAL IV ONE (09:13)
[2020-05-21] MEDS ORDERED: MAGNESIUM SULFATE 2 GM/50 ML BAG IV PRN (09:21)
[2020-05-21] MEDS ORDERED: POTASSIUM CHLORIDE 20 MEQ PACKET PO PRN (09:21)
[2020-05-21] MEDS ORDERED: ACETAMINOPHEN 325 MG TABLET PO PRN (09:21)
[2020-05-21] MEDS ORDERED: ALBUTEROL SULFATE 200 PUFF INHALER IH PRN (09:21)
[2020-05-21] MEDS ORDERED: METOPROLOL TARTRATE 5 MG/5 ML VIAL IV PRN (09:21)
[2020-05-21] MEDS ORDERED: ACETAMINOPHEN 650 MG/65 ML BOTTLE IV PRN (09:21)
[2020-05-21] MEDS ORDERED: POLYETHYLENE GLYCOL 3350 17 GM PACKET PO PRN (09:21)
[2020-05-21] MEDS ORDERED: DEXTROSE 50% 50 ML VIAL IV PRN (09:21)
[2020-05-21] MEDS ORDERED: DEXTROSE 31 GM ORAL.SUSP PO PRN (09:21)
[2020-05-21] MEDS ORDERED: MELATONIN 3 MG TABLET PO PRN (09:21)
[2020-05-21] MEDS ORDERED: BISACODYL 10 MG SUPP.RECT PR PRN (09:21)
[2020-05-21] MEDS ORDERED: ONDANSETRON 4 MG/2 ML VIAL IV PRN (09:21)
[2020-05-21] MEDS ORDERED: ONDANSETRON 4 MG ODT TABLET SL PRN (09:21)
[2020-05-21] MEDS ORDERED: hydrALAZINE 20 MG/ML VIAL IV PRN (09:21)
[2020-05-21] MEDS ORDERED: MAGNESIUM HYDROXIDE 30 ML ORAL.SUSP PO PRN (09:21)
--- NOTE | 2020-05-21 09:22 | Internal Med History&Physical ---
HPI History of Present Illness Patient information: Note initiated : 05/21/20 at 9:19 am Service Date, if different from initiated Date: [] Patient: Dominic Joseph 74 y/o M admitted on for Weakness Resolved. Chief Complaint: Woke up left-sided weakness at 3:30 AM History of present illness: Mr. Joseph is a 74 year old left-handed gentleman with a history of hypertension/diabetes who presents to the ER with symptoms of left-sided weakness that he noticed right after he woke up at 330 with sensation of charley horse left lower extremity. He attempted to straighten his leg which felt like a cramp following which it went down like that rubber. He promptly called 911 and came to the ER. Lasted for an hour but by the time he presented to the ER his NIH score was 0. Initial work-up with CT head/CT angiogram head neck was unremarkable. Hospitalist service was consulted At the time of my evaluation patient is alert and oriented. He endorses history as above. He denied thunderclap headache, vertigo, diplopia, falls or seizure- like episode. He further denies headache, tearing neck pain or chest palpitation. He did notice slurring and tongue incoordination during the 1 hour he had symptoms. He denies prior similar episodes/history of CVA or CAD/artificial valve. He denies being on blood thinners. Review of systems 10 point review system was performed and is negative except for ones discussed above Past medical history DM type II Hypertension Reactive airway disease PFSH PFS Social History (Updated 05/21/20 @ 11:36 by Buddy Gamboa MD) smoking status: Former smoker additional history: Lives alone Quit smoking 29 years ago Quit alcohol few years back MEDS/ALLERGIES Home Medications and Allergies Home Medications Medication Instructions Recorded Confirmed Type albuterol sulfate [Proventil Hfa] 1 puff IH Q4HP PRN 09/22/17 05/21/20 History furosemide 40 mg PO DAILY 09/22/17 05/21/20 History losartan [Cozaar] 50 mg PO QDAY 09/22/17 05/21/20 History montelukast [Singulair] 10 mg PO HS 09/22/17 05/21/20 History Calcium Carb/D3/Magnesium/Zinc 1 tab PO DAILY 02/19/18 05/21/20 History cholecalciferol (vitamin D3) 4,000 unit PO DAILY 02/19/18 05/21/20 History [Vitamin D3] fluticasone furoate [Arnuity 2 puff IH DAILY 02/19/18 05/21/20 History Ellipta] Trelegy 1 puff INH DAILY 02/23/18 05/21/20 History metformin 500 mg PO BID 05/21/20 05/21/20 History Allergies Allergy/AdvReac Type Severity Reaction Status Date / Time No Known Drug Allergies Allergy Verified 05/21/20 05:19 EXAM Constitutional Vitals: Temp Pulse Resp BP Pulse Ox 97.1 F 58 L 16 194/68 97 05/21/20 06:05 05/21/20 08:53 05/21/20 06:05 05/21/20 08:53 05/21/20 08:53 Head normocephalic Oral cavity moist No ear nose discharge Eye movement symmetrical Neck supple no lymphadenopathy S1-S2 regular Nonlabored breathing Distended, obese and pendulous abdomen nontender Lower extremity no cyanosis clubbing or joint swelling Skin no suspicious lesion Psych anxious but alert cooperative Neuro normal higher function DATA Data Completed and Pending Labs on day of discharge: Labs from last 24 hours 05/21/20 05/21/20 05/21/20 05:16 05:16 05:16 WBC 9.7 RBC 4.37 L Hgb 13.5 L Hct 39.6 L MCV 90.6 MCH 30.9 MCHC 34.1 RDW 13.2 Plt Count 194 MPV 10.9 H Gran % 50.9 Lymph % (Auto) 37.0 Cameron % (Auto) 9.0 Eos % (Auto) 2.6 Baso % (Auto) 0.5 Gran # 4.92 Lymph # (Auto) 3.57 Cameron # (Auto) 0.87 Eos # (Auto) 0.25 Baso # (Auto) 0.05 PT 12.0 INR 0.8 L Sodium 138 Potassium 3.0 L Chloride 97 Carbon Dioxide 27 Anion Gap 14.0 BUN 27 H Creatinine 1.3 H GFR Calculation 54 Glucose 155 H Calcium 8.4 L Total Bilirubin 0.5 AST 18 ALT 22 Alkaline Phosphatase 87 Total Protein 6.4 Albumin 3.7 Globulin 2.7 Albumin/Globulin Ratio 1.4 A/P Narrative A/P Narrative: * TIA/left-sided weakness fully resolved. NIH score 0 on presentation, GCS 15. Started on aspirin/statin. Initial neuroimaging with CT angiogram head neck/CT head unremarkable. MRI brain/echocardiogram/telemetry monitoring and aggressive stroke work-up. Continue close neuro checks/blood pressure monitoring. * History of hypertension continue losartan * History of diabetes mellitus start sliding scale insulin/CC diet * Reactive airway disease on bronchodilators * Full code * Prophylaxis heparin Plan * Observation admission * cardiac monitoring neurochecks * Aspirin, statin * Aggressive bowel protocol * Neuroimaging with MRI brain * Echocardiogram * PT OT/nutrition support Time Spent With Patient Time: Total time spent is greater than 50% in coordination of care (as documented) at patient's floor/unit and/or counseling patient:
[2020-05-21] MEDS ORDERED: ASPIRIN 81 MG TAB.CHEW ONE (09:38)
[2020-05-21] MEDS: ASPIRIN 81 MG TAB.CHEW CHEWED SCH (09:38)
[2020-05-21] MEDS: 0.9 % SODIUM CHLORIDE 1,000 ML IV SCH (09:40)
--- NOTE | 2020-05-21 12:18 | Magnetic Resonance Report ---
History: Transient left-sided weakness TECHNIQUE: Multiplanar imaging was performed using multiple pulse sequences. FINDINGS: There is a zone of abnormal cortical thickening in the angular gyrus, located posterior and laterally in the right parietal lobe. This is located just above the parietal occipital fissure. It has no mass effect. Does have mildly increased signal on T2 FLAIR. There is also subtle increased signal in the adjacent subcortical white matter. The diffusion sequence shows increased signal in the cortex. However, it also has increased signal on ADC map which would be atypical for an infarct. The remainder the brain is normal without evidence of an infarct, hemorrhage or mass. The ventricles and cisterns are normal. There is no significant atrophy and no abnormal extra-axial fluid collection is present. There is mucosal thickening along the floors of both maxillary sinuses due to low-grade sinusitis. IMPRESSION: Abnormally thickened gyri posteriorly and laterally in the right parietal lobe.. This could be due to focal cortical dysplasia. However, this usually presents with seizures in young individuals. Tuberous sclerosis is also in the differential but again presents in a younger age group. A post ictal brain sometimes has transient abnormal cortical signal following the seizure. An acute infarct is possible but the findings are atypical. A low-grade tumor such as a dysembryoplastic neuroepithelial tumor is a consideration. Interpreted and Authenticated by: Israel Rock 05/21/20
[2020-05-21] MEDS: INSULIN LISPRO 1 UNIT/0.01 ML UNIT SQ SCH ×3 (12:22→20:29)
[2020-05-21] MEDS: 0.9 % SODIUM CHLORIDE 10 ML SYRINGE IV SCH ×2 (12:23→20:26)
--- NOTE | 2020-05-21 13:38 | Magnetic Resonance Report ---
History: Transient ischemic attack with left side weakness TECHNIQUE: Patient returned for postcontrast T1-weighted views. 20 mL MultiHance contrast was injected intravenously. Sagittal coronal and axial T1-weighted views were acquired. FINDINGS: The cortical lesion seen in the right parietal lobe on the preceding unenhanced MRI does not enhance with contrast. The T1 signal characteristics of this lesion are identical to normal brain tissue. There is no swelling or mass effect in this region. There is no evidence of a vascular malformation or meningeal thickening. IMPRESSION: right parietal lobe lesion is occult on postcontrast T1-weighted imaging. The differential is unchanged and includes focal cortical dysplasia, post ictal edema, atypical ischemia or low-grade neoplasm. Follow-up unenhanced brain MRI within three months would be suggested. Interpreted and Authenticated by: Israel Rock 05/21/20
--- NOTE | 2020-05-21 15:49 | Internal Med Progress Note ---
SUBJECTIVE Subjective Patient information: Note initiated : 05/21/20 at 3:47 pm Service Date, if different from initiated Date: [] Patient: Dominic Joseph 74 y/o M admitted on 05/21/20 for Weakness Resolved. Chief Complaint: [] Interval history: History of present illness: Mr. Joseph is a 74 year old left-handed gentleman with a history of hypertensi on/diabetes who presents to the ER with symptoms of left-sided weakness that he noticed right after he woke up at 330 with sensation of charley horse left lower extremity. He attempted to straighten his leg which felt like a cramp following which it went down like that rubber. He promptly called 911 and came to the ER. Lasted for an hour but by the time he presented to the ER his NIH score was 0. Initial work-up with CT head/CT angiogram head neck was unremarkable. Hospitalist service was consulted At the time of my evaluation patient is alert and oriented. He endorses history as above. He denied thunderclap headache, vertigo, diplopia, falls or seizure- like episode. He further denies headache, tearing neck pain or chest palpitation. He did notice slurring and tongue incoordination during the 1 hour he had symptoms. He denies prior similar episodes/history of CVA or CAD/artificial valve. He denies being on blood thinners. 05/22 Constitutional Vitals: Vital Signs Temp Pulse Resp BP Pulse Ox 97.8 F 59 L 12 182/86 98 05/21/20 12:03 05/21/20 15:02 05/21/20 15:02 05/21/20 15:02 05/21/20 15:02 Period Temp Pulse Resp BP Sys/Miguel Pulse Ox Last 24 Hr 97.1 F-97.8 F 52-68 12-18 163-194/68-86 93-98 Intake and Output 05/21/20 05/21/20 05/21/20 05:59 13:59 21:59 Intake Total 0 Balance 0 Weight 113.398 kg 113.285 kg Patient Weight 05/22/20 05:59 Weight 113.285 kg Intake & Output: Intake & Output 05/21/20 05/21/20 05/21/20 05:59 13:59 21:59 Intake Total 0 Balance 0 Weight 113.398 kg 113.285 kg Intake: Oral 0 Other: Meal Lunch Percent of Meal Consumed 100% Feeding Ability Independent Exam: General: Alert, Awake, No acute Distress, obese Eyes/N/T: EOMI, Head/Neck: neck supple, CV: RRR, No murmurs, Pulm: Clear b/l, no wheezing/rhonchi/rales Abd: soft, nontender, +BS x4 Ext: no clubbing/cyanosis/edema Neuro: Alert, no focal deficits, moves all extremities, Skin: warm/dry OBJ DATA Labs CBC & Chem 7: 05/21/20 05:16 05/21/20 05:16 Labs: Abnormal Lab Results 05/21/20 05/21/20 05/21/20 05:16 05:16 05:16 RBC 4.37 L Hgb 13.5 L Hct 39.6 L MPV 10.9 H INR 0.8 L Potassium 3.0 L BUN 27 H Creatinine 1.3 H Glucose 155 H Calcium 8.4 L Meds: Medications Acetaminophen (Tylenol) 650 mg PO Q4-6HP PRN; Protocol PRN Reason: Per Pain Protocol/Fever > 101 Albuterol Sulfate (Ventolin) 1 puff IH Q4HP PRN PRN Reason: Shortness Of Breath Aspirin (Aspirin) 324 mg CHEWED DAILY [facility] Last Admin: 05/21/20 09:38 Dose: 324 mg Documented by: Atorvastatin Calcium (Lipitor) 40 mg PO HS [facility] Bisacodyl (Dulcolax) 10 mg NH Q2-3DAYS PRN PRN Reason: Constipation Calcium/Vitamin D (Calcium W/Vit D3) 500 mg PO DAILY [facility] Cyanocobalamin (Vitamin B-12) 1,000 mcg PO BID [facility] Stop: 05/26/20 09:01 Dextrose (Dextrose 50%) 0 ml IV UD PRN PRN Reason: Hypoglycemia Diagnostic Test (Pha) (Accu-Chek) 1 each FS ACHS [facility] Last Admin: 05/21/20 12:23 Dose: 1 each Documented by: Docusate Sodium (Colace) 100 mg PO BID [facility] Furosemide (Lasix) 40 mg PO DAILY [facility] Glucose (Insta-Glucose) 15 gm PO PRN PRN PRN Reason: Hypoglycemia Heparin Sodium (Porcine) (Heparin) 5,000 unit SQ Q12 [facility] Hydralazine HCl (Apresoline) 10 mg IV Q4-6HP PRN PRN Reason: Hypertension Last Admin: 05/21/20 12:28 Dose: 10 mg Documented by: Sodium Chloride (Sodium Chloride 0.9%) 1,000 mls @ 50 mls/hr IV .Q20H [facility] Stop: 05/23/20 21:29 Last Admin: 05/21/20 09:40 Dose: 50 mls/hr Documented by: Acetaminophen (Ofirmev) 650 mg in 65 mls @ 130 mls/hr IV Q6HP PRN; Protocol PRN Reason: Per Pain Protocol/Fever > 101 Magnesium Sulfate (Magnesium Sulfate) 2 gm in 50 mls @ 50 mls/hr IV UD PRN PRN Reason: MG = or < 1.7 Insulin Human Lispro (Humalog) 0 unit SQ ACHS [facility]; Protocol Last Admin: 05/21/20 12:22 Dose: 1 unit Documented by: Iron Carb/Multivit/[place]/Folic Acid (Multivitamin W/Minerals) 1 tab PO DAILY [facility] Losartan Potassium (Cozaar) 50 mg PO QDAY [facility] Magnesium Hydroxide (Milk Of Magnesia) 30 ml PO HSP PRN PRN Reason: Constipation Melatonin (Melatonin 3mg Tablet) 3 mg PO HSP PRN PRN Reason: Insomnia Metoprolol Tartrate (Lopressor) 5 mg IV Q5M PRN PRN Reason: Heart Rate > 140 bpm Montelukast Sodium (Singular) 10 mg PO HS [facility] Ondansetron HCl (Zofran Odt) 4 mg SL Q4-6HP PRN; Protocol PRN Reason: Nausea And Vomiting Ondansetron HCl (Zofran) 4 mg IV Q4-6HP PRN; Protocol PRN Reason: Nausea And Vomiting Fluticasone Furoate [Arnuity Ellipta] 100 Mcg/Actuation Inhaler 1 dose INH DORIAN LY [facility] Trelegy (Fluticasone 100mcg/Umeclidinium 62.5mcg/Vilanterol 25mcg) Inhaler 1 dose INH DAILY [facility] Polyethylene Glycol (Miralax) 17 gm PO DAILYP PRN PRN Reason: Constipation Potassium Chloride (Klor-Con) 40 meq PO DAILYP PRN PRN Reason: K+ < 3.5 Senna/Docusate Sodium (Senna Plus Tablet) 1 tab PO HS [facility] Sitagliptin Phosphate (Januvia) 100 mg PO DAILY [facility] Sodium Chloride (Saline Flush) 10 ml IV Q8 [facility] Last Admin: 05/21/20 12:23 Dose: Not Given Documented by: Thiamine HCl (Vitamin B1) 100 mg PO DAILY [facility] Vitamin D (Vitamin D3) 4,000 unit PO DAILY [facility] A/P Narrative A/P Narrative: A: *CVA w/left-sided weakness fully resolved: NIH score 0 on presentation, GCS 15. -CT angiogram head neck/CT head unremarkable -MRI brain with right parietal lobe lesion *HTN: on losartan *DM: *Reactive airway disease on bronchodilators Plan: -Started on aspirin/statin -echo pending -permissive HTN, restart meds gradually -cardiac monitoring neurochecks -Aggressive bowel protocol -SSI -PT OT/nutrition support -radiologist recommends repeat MRI w/o contrast within 3-month to f/u right parietal lesion -ppx: lovenox Time Spent With Patient Time: Total time spent is greater than 50% in coordination of care (as documented) at patient's floor/unit and/or counseling patient: QUALITY VTE Deep Vein Thrombosis/Pulmonary Embolism Present on Admission: No
[2020-05-21] MEDS ORDERED: LABETALOL 5 MG/ML ML IV PRN (15:59)
[2020-05-21] MEDS: DOCUSATE SODIUM 100 MG CAPSULE PO SCH (20:25)
[2020-05-21] MEDS: CYANOCOBALAMIN (VITAMIN B-12) 500 MCG TABLET PO SCH (20:26)
[2020-05-21] MEDS ORDERED: MONTELUKAST 10 MG TABLET PO SCH (21:00)
[2020-05-21] MEDS ORDERED: ATORVASTATIN 20 MG TABLET PO SCH (21:00)
[2020-05-21] MEDS ORDERED: HEPARIN 5,000 UNIT/ML VIAL SQ SCH (21:00)
[2020-05-21] MEDS ORDERED: SENNOSIDES/DOCUSATE SODIUM 1 TAB TABLET PO SCH (21:00)
[2020-05-22] MEDS: 0.9 % SODIUM CHLORIDE 10 ML SYRINGE IV SCH (05:06)
[2020-05-22 06:47] LABS: Hematocrit 39.4 % (40.1-51.0); Hemoglobin 13.6 g/dL (13.7-17.5); Mean Cell Volume 89.5 fL (80.0-100.0); Mean Corpuscular HGB Conc 34.5 g/dL (31.0-36.0); Mean Platelet Volume 11.1 fL (7.4-10.4); Platelet Count 198 K/mcL (140-440); Red Cell Distribution Width 13.4 % (11.5-14.5); WBC 10.1 K/mcL (4.50-11.00)
[2020-05-22] MEDS: 0.9 % SODIUM CHLORIDE 1,000 ML IV SCH (07:03)
[2020-05-22 07:15] LABS: ALT/SGPT 21 U/l (0-40); AST/SGOT 22 U/l (0-37); Albumin 3.8 gm/dL (3.2-5.2); Albumin/Globulin Ratio 1.5 (1.0-2.3); Alkaline Phosphatase 83 U/L (39-117); Bilirubin,Direct < 0.2 mg/dL (0.0-0.3); Bilirubin,Total 0.7 mg/dL (0.0-1.0); Blood Urea Nitrogen 18 mg/dl (8-23); C-Reactive Protein 1.5 mg/dl (0.0-0.8); Calcium 8.6 mg/dl (8.6-10.4); Carbon Dioxide 26 mmol/L (22-30); Chloride 104 mmol/L (96-108); Globulin 2.5 gm/dL (2.2-3.7); Glomerular Filtration Rate 74; Glucose 138 mg/dL (70-105); Lactate Dehydrogenase 178 U/L (94-250); Triglycerides 115 mg/dl (<150); Uric Acid 10.2 mg/dL (2.5-8.0)
--- NOTE | 2020-05-22 07:15 | Internal Med Progress Note ---
SUBJECTIVE Subjective Patient information: Note initiated : 05/22/20 at 7:12 am Service Date, if different from initiated Date: [] Patient: Dominic Joseph 74 y/o M admitted on 05/21/20 for Weakness Resolved. Chief Complaint: [] Constitutional Vitals: Vital Signs Temp Pulse Resp BP Pulse Ox 98.2 F 72 16 181/92 95 05/22/20 04:02 05/22/20 07:05 05/22/20 07:02 05/22/20 07:02 05/22/20 07:05 Period Temp Pulse Resp BP Sys/Miguel Pulse Ox Last 24 Hr 97.4 F-98.4 F 52-72 10- 157-194/62-145 92-98 Intake and Output 05/21/20 05/22/20 05/22/20 21:59 05:59 13:59 Intake Total 870 1240 180 Output Total 700 725 Balance 170 515 180 Weight 113.993 kg Intake & Output: Intake & Output 05/21/20 05/22/20 05/22/20 21:59 05:59 13:59 Intake Total 870 1240 180 Output Total 700 725 Balance 170 515 180 Weight 113.993 kg Intake: IV 1000 Sodium Chloride 0.9% 1,000 ml @ 1000 50 mls/hr IV .Q20H [facility] Rx#: [id number] Oral 870 240 180 Output: Void Amount 700 725 Other: Meal Dinner Percent of Meal Consumed 100% Feeding Ability Independent Urine Appearance Clear Urine Color Bright Yellow Urine Odor Normal Exam: General: Alert, Awake, No acute Distress, obese Eyes/N/T: EOMI, Head/Neck: neck supple, CV: RRR, No murmurs, Pulm: Clear b/l, no wheezing/rhonchi/rales Abd: soft, nontender, +BS x4 Ext: no clubbing/cyanosis/edema Neuro: Alert, no focal deficits, moves all extremities, Skin: warm/dry OBJ DATA Labs CBC & Chem 7: 05/22/20 05:05 05/22/20 05:05 Labs: Abnormal Lab Results 05/22/20 05/21/20 05/21/20 05:05 05:16 05:16 RBC 4.40 L Hgb 13.6 L Hct 39.4 L MPV 11.1 H INR 0.8 L Potassium 3.0 L BUN 27 H Creatinine 1.3 H Glucose 155 H Calcium 8.4 L 05/21/20 05:16 RBC 4.37 L Hgb 13.5 L Hct 39.6 L MPV 10.9 H INR Potassium BUN Creatinine Glucose Calcium Meds: Medications Acetaminophen (Tylenol) 650 mg PO Q4-6HP PRN; Protocol PRN Reason: Per Pain Protocol/Fever > 101 Albuterol Sulfate (Ventolin) 1 puff IH Q4HP PRN PRN Reason: Shortness Of Breath Aspirin (Aspirin) 324 mg CHEWED DAILY [facility] Last Admin: 05/21/20 09:38 Dose: 324 mg Documented by: Atorvastatin Calcium (Lipitor) 40 mg PO HS [facility] Last Admin: 05/21/20 20:26 Dose: 40 mg Documented by: Bisacodyl (Dulcolax) 10 mg AL Q2-3DAYS PRN PRN Reason: Constipation Calcium/Vitamin D (Calcium W/Vit D3) 500 mg PO DAILY [facility] Cyanocobalamin (Vitamin B-12) 1,000 mcg PO BID [facility] Stop: 05/26/20 09:01 Last Admin: 05/21/20 20:26 Dose: 1,000 mcg Documented by: Dextrose (Dextrose 50%) 0 ml IV UD PRN PRN Reason: Hypoglycemia Diagnostic Test (Pha) (Accu-Chek) 1 each FS ACHS [facility] Last Admin: 05/21/20 20:29 Dose: 1 each Documented by: Docusate Sodium (Colace) 100 mg PO BID [facility] Last Admin: 05/21/20 20:25 Dose: 100 mg Documented by: Enoxaparin Sodium (Lovenox) 40 mg SQ DAILY [facility] Furosemide (Lasix) 40 mg PO DAILY [facility] Glucose (Insta-Glucose) 15 gm PO PRN PRN PRN Reason: Hypoglycemia Sodium Chloride (Sodium Chloride 0.9%) 1,000 mls @ 50 mls/hr IV .Q20H [facility] Stop: 05/23/20 21:29 Last Admin: 05/22/20 07:03 Dose: 50 mls/hr Documented by: Acetaminophen (Ofirmev) 650 mg in 65 mls @ 130 mls/hr IV Q6HP PRN; Protocol PRN Reason: Per Pain Protocol/Fever > 101 Magnesium Sulfate (Magnesium Sulfate) 2 gm in 50 mls @ 50 mls/hr IV UD PRN PRN Reason: MG = or < 1.7 Insulin Human Lispro (Humalog) 0 unit SQ ACHS [facility]; Protocol Last Admin: 05/21/20 20:29 Dose: 3 unit Documented by: Iron Carb/Multivit/[place]/Folic Acid (Multivitamin W/Minerals) 1 tab PO DAILY [facility] Labetalol HCl (Trandate) 0 mg IV Q2HP PRN PRN Reason: Hypertension Losartan Potassium (Cozaar) 50 mg PO QDAY [facility] Magnesium Hydroxide (Milk Of Magnesia) 30 ml PO HSP PRN PRN Reason: Constipation Melatonin (Melatonin 3mg Tablet) 3 mg PO HSP PRN PRN Reason: Insomnia Metoprolol Tartrate (Lopressor) 5 mg IV Q5M PRN PRN Reason: Heart Rate > 140 bpm Last Admin: 05/21/20 17:05 Dose: 5 mg Documented by: Montelukast Sodium (Singular) 10 mg PO HS [facility] Last Admin: 05/21/20 20:25 Dose: 10 mg Documented by: Ondansetron HCl (Zofran Odt) 4 mg SL Q4-6HP PRN; Protocol PRN Reason: Nausea And Vomiting Ondansetron HCl (Zofran) 4 mg IV Q4-6HP PRN; Protocol PRN Reason: Nausea And Vomiting Fluticasone Furoate [Arnuity Ellipta] 100 Mcg/Actuation Inhaler 1 dose INH DAILY [facility] Trelegy (Fluticasone 100mcg/Umeclidinium 62.5mcg/Vilanterol 25mcg) Inhaler 1 dose INH DAILY [facility] Polyethylene Glycol (Miralax) 17 gm PO DAILYP PRN PRN Reason: Constipation Potassium Chloride (Klor-Con) 40 meq PO DAILYP PRN PRN Reason: K+ < 3.5 Senna/Docusate Sodium (Senna Plus Tablet) 1 tab PO HS [facility] Last Admin: 05/21/20 20:25 Dose: 1 tab Documented by: Sitagliptin Phosphate (Januvia) 100 mg PO DAILY [facility] Sodium Chloride (Saline Flush) 10 ml IV Q8 [facility] Last Admin: 05/22/20 05:06 Dose: Not Given Documented by: Thiamine HCl (Vitamin B1) 100 mg PO DAILY [facility] Vitamin D (Vitamin D3) 4,000 unit PO DAILY [facility] A/P Narrative A/P Narrative: A: *CVA w/left-sided weakness fully resolved: -CT angiogram head neck/CT head unremarkable -MRI brain with right parietal lobe lesion *HTN: on losartan *DM: *Reactive airway disease on bronchodilators Plan: -Started on aspirin/statin -echo pending -permissive HTN, restart meds gradually -cardiac monitoring neurochecks -Aggressive bowel protocol -SSI -PT OT/nutrition support, cleared by ST -radiologist recommends repeat MRI w/o contrast within 3-month to f/u right parietal lesion -ppx: lovenox Time Spent With Patient Time: Total time spent is greater than 50% in coordination of care (as documented) at patient's floor/unit and/or counseling patient: QUALITY VTE Deep Vein Thrombosis/Pulmonary Embolism Present on Admission: No
[2020-05-22 07:17] LABS: Phosphorous 2.2 mg/dL (2.7-4.5)
[2020-05-22 07:51] LABS: Eosinophils % (Manual) 1 % (0-7); Lymphocytes % 34 % (15-49); Monocytes % (Manual) 4 % (1-12); Platelet Estimate NORMAL (NORMAL); RBC Morphology NORMAL (NORMAL); Segmented Neutrophils % 61 % (38-78)
[2020-05-22 07:54] LABS: Erythrocyte Sedimentation Rate 29 mm/hr (0-15)
[2020-05-22] MEDS ORDERED: ENOXAPARIN 40 MG/0.4 ML SYRINGE SQ SCH (09:00)
[2020-05-22] MEDS ORDERED: FUROSEMIDE 40 MG TABLET PO SCH (09:00)
[2020-05-22] MEDS ORDERED: TRELEGY INH SCH (09:00)
[2020-05-22] MEDS ORDERED: CALCIUM W/VIT D3 500 MG TABLET PO SCH (09:00)
[2020-05-22] MEDS ORDERED: MULTIVIT,THER IRON,CA,FA & MIN 1 TABLET PO SCH (09:00)
[2020-05-22] MEDS ORDERED: LOSARTAN 50 MG TABLET PO SCH (09:00)
[2020-05-22] MEDS ORDERED: FLUTICASONE FUROATE INH SCH (09:00)
[2020-05-22] MEDS ORDERED: THIAMINE 100 MG TABLET PO SCH (09:00)
[2020-05-22] MEDS ORDERED: VITAMIN D3 1,000 UNIT TABLET PO SCH (09:00)
[2020-05-22] MEDS ORDERED: sitaGLIPtin 100 MG TABLET PO SCH (09:00)
--- NOTE | 2020-05-22 09:10 | Discharge Summary ---
Discharge Provider Provider Patient information: Note initiated : 05/22/20 at 9:08 am Service Date, if different from initiated Date: [] Patient: Dominic Joseph 74 y/o M admitted on 05/21/20 for Weakness Resolved. Chief Complaint: [] Date of admission: 05/21/20 09:12 Discharge date: 05/22/20 Primary care physician: Medardo Moreira Consults: 05/21/20 07:01 Consult to Physician [CONS] Stat Comment: Consulting Provider: Budyd Gamboa Reason For Exam: Physician to Consult Discharge Meds Discharge Medications Home Medications albuterol sulfate [Proventil HFA] 1 puff IH Q4HP PRN 09/22/17 [History Confirmed 05/21/20 Last Taken 05/21/20 05:00] furosemide 40 mg PO DAILY 09/22/17 [History Confirmed 05/21/20 Last Taken 05/20/20 08:00] losartan [Cozaar] 50 mg PO QDAY 09/22/17 [History Confirmed 05/21/20 Last Taken 05/20/20 08:00] montelukast [Singulair] 10 mg PO HS 09/22/17 [History Confirmed 05/21/20 Last Taken 02/22/18 20:00] cholecalciferol (vitamin D3) [Vitamin D3] 4,000 unit PO DAILY 02/19/18 [History Confirmed 05/21/20 Last Taken 02/22/18 06:00] Trelegy 1 puff INH DAILY 02/23/18 [History Confirmed 05/21/20 Last Taken 05/20/20 08:00] metformin 500 mg PO BID 05/21/20 [History Confirmed 05/21/20 Last Taken 05/20/20 17:00] aspirin [Aspir-81] 81 mg PO QDAY #30 tab 05/22/20 [Rx Last Taken Unknown] atorvastatin 40 mg PO HS #30 tab 05/22/20 [Rx Last Taken Unknown] COURSE Hospital Course Hospital course: History of present illness: Mr. Joseph is a 74 year old left-handed gentleman with a history of hypertension/diabetes who presents to the ER with symptoms of left-sided weakness that he noticed right after he woke up at 330 with sensation of charley horse left lower extremity. He attempted to straighten his leg which felt like a cramp following which it went down like that rubber. He promptly called 911 and came to the ER. Lasted for an hour but by the time he presented to the ER his NIH score was 0. Initial work-up with CT head/CT angiogram head neck was unremarkable. Hospitalist service was consulted At the time of my evaluation patient is alert and oriented. He endorses history as above. He denied thunderclap headache, vertigo, diplopia, falls or seizure- like episode. He further denies headache, tearing neck pain or chest palpitation. He did notice slurring and tongue incoordination during the 1 hour he had symptoms. He denies prior similar episodes/history of CVA or CAD/artificial valve. He denies being on blood thinners. 05/22 No issues overnight. No new complaints. Symptoms not return. Stable for discharge. Discharge diagnosis: cva Secondary discharge diagnosis: Hypertension diabetes reactive airway disease Time Spent with Patient Time attestation: Total time spent providing and/or coordinating discharge services: Time spent: Greater than 30 minutes EXAM Constitutional Vitals: Temp Pulse Resp BP Pulse Ox 97.7 F 62 17 157/65 95 05/22/20 08:02 05/22/20 08:02 05/22/20 08:02 05/22/20 08:02 05/22/20 08:02 Discharge Data Data Completed and Pending Labs on day of discharge: Labs from last 24 hours 05/22/20 05/22/20 05:05 05:05 WBC 10.1 RBC 4.40 L Hgb 13.6 L Hct 39.4 L MCV 89.5 MCH 30.9 MCHC 34.5 RDW 13.4 Plt Count 198 MPV 11.1 H Total Counted 100 Seg Neutrophils % 61 Band Neutrophils % Not Reportable Lymphocytes % 34 Monocytes % (Manual) 4 Eosinophils % (Manual) 1 Platelet Estimate Normal RBC Morphology Normal ESR 29 H Sodium 141 Potassium 3.3 Chloride 104 Carbon Dioxide 26 Anion Gap 11.0 BUN 18 Creatinine 1.0 GFR Calculation 74 Glucose 138 H Uric Acid 10.2 H Calcium 8.6 Phosphorus 2.2 L Magnesium 2.2 Total Bilirubin 0.7 Direct Bilirubin < 0.2 GGT 36 AST 22 ALT 21 Alkaline Phosphatase 83 Lactate Dehydrogenase 178 C-Reactive Protein 1.5 H Total Protein 6.3 Albumin 3.8 Globulin 2.5 Albumin/Globulin Ratio 1.5 Triglycerides 115 Discharge Plan Patient/Caregiver Discharge Instructions Activity: increase activity as tolerated Diet: Cardiac Instructions: Transient Ischemic Attack (GEN) Activity Restrictions/Additional Instructions: This discharge packet is provided to you to help keep you informed about your care. We want to ensure you get everything you need when you go home. You will also be receiving a call from us in a few days to follow up with you and see how you are doing since your discharge. This gives us a chance to listen to any concerns you maybe experiencing since you were discharged or any additional needs you may have, as well as providing us feedback on your care experience. We strive to always provide excellent care and thank you for your feedback and for choosing [facility]. Recommend f/u noncontrast Brain MRI in 3-months to evaluate lesion. Prescriptions: New atorvastatin 20 mg Tablet 40 mg PO HS Qty: 30 RF: 0 aspirin [Aspir-81] 81 mg tablet,delayed release (DR/EC) 81 mg PO QDAY Qty: 30 RF: 0 Continued losartan [Cozaar] 50 MG tablet 50 mg PO QDAY RF: 0 furosemide 40 MG tablet 40 mg PO DAILY RF: 0 montelukast [Singulair] 10 MG tablet 10 mg PO HS RF: 0 albuterol sulfate [Proventil HFA] 6.7 GM HFA aerosol inhaler 1 puff IH Q4HP PRN (Reason: Shortness Of Breath) RF: 0 cholecalciferol (vitamin D3) [Vitamin D3] 1,000 UNIT tablet 4,000 unit PO DAILY RF: 0 Trelegy Inhaler 1 puff INH DAILY RF: 0 metformin 500 mg Tablet 500 mg PO BID RF: 0 Follow Up Plan Follow up with: Medardo Moreira MD [Primary Care Provider] - 05/28/20 11:00 am Patient Disposition: Home, Self-Care Prognosis: Fair Rehab Potential: Fair Discharge Orders: Discharge Order (Routine); Ordered 05/22/20 Ordered By: Tanner AGUILERA VTE Deep Vein Thrombosis/Pulmonary Embolism Present on Admission: No
[2020-05-22] MEDS ORDERED: sitaGLIPtin 50 MG TABLET PO ONE (09:38)
[2020-05-22] MEDS: ASPIRIN 81 MG TAB.CHEW CHEWED SCH (09:41)
[2020-05-22] MEDS: CYANOCOBALAMIN (VITAMIN B-12) 500 MCG TABLET PO SCH (09:42)
[2020-05-22] MEDS: INSULIN LISPRO 1 UNIT/0.01 ML UNIT SQ SCH (09:43)
[2020-05-22] MEDS: DOCUSATE SODIUM 100 MG CAPSULE PO SCH (09:43)
== END 2020-05-22 12:30 | disposition home or self-care (01) ==
LOC: ED 05:12 → ICU 05:12
PROVIDERS: ADMIT Internal Medicine; ATTEND Internal Medicine